=== PATIENT | female | born 1995 | race American Indian/Alaskan Native ===

== ENCOUNTER 2017-03-29 08:56 | Emergency (ER) | payer BC ==
[2017-03-29 09:11] VITALS: TEMP 98; BMI 22.3
--- NOTE | 2017-03-29 09:28 | ED PDOC ---
Arrival/HPI - General Chief Complaint: Allergic Reaction Time Seen by Provider: 03/29/17 09:22 Historian: Patient - History of Present Illness Narrative History of Present Illness (Text): 03/29/17 09:25 21 year old female with shellfish allergy presents to the emergency department with facial swelling after eating crab two days ago. She states she had a similar reaction to shrimp two months ago, with gradual onset of symptoms, which quickly resolved after being given a shot in the ER. Patient states she noticed some facial swelling and itching yesterday. Denies shortness of breath or other complaints. Time/Duration: < week Symptom Onset: Gradual Symptom Course: Unchanged Modifying Factors (Text): None Past Medical History - Provider Review Nursing Documentation Reviewed: Yes - Infectious Disease Hx of Infectious Diseases: None - Reproductive Menopause: No - Cardiac Hx Cardiac Disorders: No - Pulmonary Hx Asthma: Yes - Neurological Hx Neurological Disorder: No - HEENT Hx HEENT Disorder: No - Renal Hx Renal Disorder: No Hx Kidney Stones: No - Endocrine/Metabolic Hx Endocrine Disorders: No - Hematological/Oncological Hx Blood Disorders: No - Integumentary Hx Dermatological Disorder: No - Musculoskeletal/Rheumatological Hx Musculoskeletal Disorders: No - Gastrointestinal Hx Gastrointestinal Disorders: No - Genitourinary/Gynecological Hx Genitourinary Disorders: No - Psychiatric Hx Psychophysiologic Disorder: No Hx Substance Use: No - Anesthesia Hx Anesthesia: No Hx Anesthesia Reactions: No Hx Malignant Hyperthermia: No Family/Social History - Physician Review Nursing Documentation Reviewed: Yes Family/Social History: Unknown Family HX Smoking Status: Never Smoked Hx Alcohol Use: No Hx Substance Use: No Allergies/Home Meds Allergies/Adverse Reactions: Allergies shellfish derived Allergy (Verified 01/02/17 11:20) RASH Review of Systems - Physician Review All systems were reviewed & negative as marked: Yes - Review of Systems Respiratory: absent: SOB Skin: Other (Facial swelling) Physical Exam Vital Signs Reviewed: Yes Vital Signs Temp Pulse Resp BP Pulse Ox 03/29/17 09:58 80 16 113/82 100 03/29/17 09:05 98.0 F 82 18 112/77 98 Temperature: Afebrile Blood Pressure: Normal Pulse: Regular Respiratory Rate: Normal Appearance: Positive for: Well-Appearing, Non-Toxic, Comfortable Pain Distress: None Mental Status: Positive for: Alert and Oriented X 3 - Systems Exam Head: Present: Normocephalic, Swelling (Mild facial swelling) Pupils: Present: PERRL Extroacular Muscles: Present: EOMI Conjunctiva: Present: Normal Mouth: Present: Moist Mucous Membranes, Normal Teeth, Other (No signs of dental abscess) Pharnyx: Present: Normal. No: ERYTHEMA, EXUDATE, TONSILS ENLARGED, Uvular Deviation, Strider Neck: Present: Normal Range of Motion Respiratory/Chest: Present: Clear to Auscultation, Good Air Exchange. No: Respiratory Distress, Accessory Muscle Use Cardiovascular: Present: Regular Rate and Rhythm, Normal S1, S2. No: Murmurs Abdomen: Present: Normal Bowel Sounds. No: Tenderness, Distention, Peritoneal Signs Back: Present: Normal Inspection Upper Extremity: Present: Normal Inspection. No: Cyanosis, Edema Lower Extremity: Present: Normal Inspection. No: Edema Neurological: Present: GCS=15, CN II-XII Intact, Speech Normal Skin: Present: Warm, Dry, Normal Color. No: Rashes Psychiatric: Present: Alert, Oriented x 3, Normal Insight, Normal Concentration Medical Decision Making ED Course and Treatment: Impression: 21 year old female with shellfish allergy presents to the emergency department with facial swelling after eating crab two days ago. Differential Diagnosis include but are not limited to: Allergic reaction Plan: -- Decadron -- Reassess and disposition Prior Visits: Notes and results from previous visits were reviewed. Patient last seen in ED on 01/02/17 for facial pain and swelling and discharged home. Progress Notes: - Medication Orders Current Medication Orders: Discontinued Medications Dexamethasone (Decadron Inj) 10 mg IM STAT STA Stop: 03/29/17 09:23 Last Admin: 03/29/17 09:53 Dose: 10 mg - Scribe Statement The provider has reviewed the documentation as recorded by the Haylie Rodriguez Provider Scribe Attestation: All medical record entries made by the Haylie were at my direction and personally dictated by me. I have reviewed the chart and agree that the record accurately reflects my personal performance of the history, physical exam, medical decision making, and the department course for this patient. I have also personally directed, reviewed, and agree with the discharge instructions and disposition. Disposition/Present on Arrival - Present on Arrival Any Indicators Present on Arrival: No History of DVT/PE: No History of Uncontrolled Diabetes: No Urinary Catheter: No History of Decub. Ulcer: No History Surgical Site Infection Following: None - Disposition Have Diagnosis and Disposition been Completed?: Yes Diagnosis: Allergic reaction Disposition: HOME/ ROUTINE Disposition Time: 09:20 Condition: GOOD Discharge Instructions (ExitCare): General Allergic Reaction (ED) Additional Instructions: Thank you for letting us take care of you today. Your provider was Dr. Newby. You were treated for an allergic reaction. The emergency medical care you received today was directed at your acute symptoms. If you were prescribed any medication, please fill it and take as directed. It may take several days for your symptoms to resolve. Return to the Emergency Department if your symptoms worsen, do not improve, or if you have any other problems. Please contact your doctor or call one of the physicians/clinics you have been referred to that are listed on the Patient Visit Information form that is included in your discharge packet. Bring any paperwork you were given at discharge with you along with any medications you are taking to your follow up visit. Our treatment cannot replace ongoing medical care by a primary care provider (PCP) outside of the emergency department. Thank you for allowing the [facility] team to be part of your care today. Start prednisone tomorrow. Follow up with your doctor in 2-3 days for re-evaluation and return to the emergency room if you have any concerns. Prescriptions: predniSONE [Prednisone] 40 mg PO DAILY #10 tab Referrals: PCP,NO [Primary Care Provider] - Follow up with primary
[2017-03-29 10:04] VITALS: BP 113/82; PULSE 80; RESP 16; O2SAT 100
== END 2017-03-29 10:04 | disposition home or self-care (01) ==
LOC: ED 08:56
DX: T78.49XA Other allergy, initial encounter (principal); X58.XXXA Exposure to other specified factors, initial encounter
CPT/HCPCS: 96372; 99283; J1100

== ENCOUNTER 2017-04-04 21:06 | Emergency (ER) | payer BC ==
[2017-04-04 21:06] VITALS: BMI 22.3
[2017-04-04 21:49] VITALS: BP 118/77; PULSE 76; RESP 16; TEMP 98.9; O2SAT 100
== END 2017-04-04 22:30 | disposition left against medical advice (07) ==
LOC: ED 21:06
DX: Z02.89 Encounter for other administrative examinations (principal); R22.0 Localized swelling, mass and lump, head